=== PATIENT | female | born 1990 | race Caucasian/White ===

== ENCOUNTER 2025-06-10 16:20 | Emergency (ER) | payer MEDICAID ==
[~2025-06-10] VITALS: Ht 162.6 cm; Wt 68.2 kg
[2025-06-10 16:26] VITALS: O2SAT 100
[2025-06-10] MEDS: ONDANSETRON HCL 4MG/2ML INJ IV ONE (17:35)
[2025-06-10] MEDS: SODIUM CHLORIDE 0.9% 1,000 ML IV ONE (17:35)
[2025-06-10 17:45] LABS: CREATININE 0.6 mg/dL (0.6-1.0); UREA NITROGEN BLOOD 9 mg/dL (9-23)
[2025-06-10 17:47] LABS: ASPARTATE AMINOTRANSFERASE 11 IU/L (<34); BILIRUBIN DIRECT 0.1 mg/dL (<=3.0); BILIRUBIN TOTAL 0.4 mg/dL (0.1-1.0); PROTEIN TOTAL 6.7 g/dL (6.0-8.3)
[2025-06-10 17:48] LABS: BASOPHILS % 0.4 % (0.0-2.0); EOSINOPHILS % 0.4 % (0.0-5.0); HEMATOCRIT. 37.1 % (36.0-48.0); HEMOGLOBIN. 12.6 g/dL (12.0-16.0); LYMPHOCYTES % 22.3 % (20.0-50.0); MEAN PLATELET VOLUME 9.7 fl (7.4-10.4); MONOCYTES % 4.8 % (2.0-8.0); NEUTROPHILS % 72.1 % (40.0-76.0); PLATELET 200 x1000/uL (130-400); RED BLOOD CELL COUNT 4.17 mill/uL (4.2-5.4); RED CELL DISTRIBUTION WIDTH 13.9 % (11.6-14.6)
[2025-06-10 17:50] LABS: HCG SCREEN POSITIVE
[2025-06-10 18:06] LABS: B-HCG QUANTITATIVE 148012 mIU/mL (<6)
[2025-06-10] MEDS: POTASSIUM CHLORIDE 20MEQ TABLET SR PO STA (19:21)
[2025-06-10 19:35] LABS: CLARITY URINE CLEAR (CLEAR); COLOR URINE YELLOW (YELLOW); GLUCOSE URINE NEGATIVE (NEGATIVE); KETONES URINE 3+ (NEGATIVE); LEUKOCYTE ESTERASE URINE NEGATIVE (NEGATIVE); NITRITE URINE NEGATIVE (NEGATIVE); OCCULT BLOOD URINE TRACE (NEGATIVE); PH URINE 5.5 (4.5-8.0); PROTEIN URINE NEGATIVE (NEGATIVE); SPECIFIC GRAVITY URINE 1.026 (1.005-1.030); UROBILINOGEN URINE 0.2 E.U./dL (0.2-1.0)
[2025-06-10 20:30] VITALS: BP 94/43; PULSE 66; RESP 16; TEMP 36.9; O2SAT 100
[2025-06-10 20:33] LABS: BACTERIA URINE NONE SEEN; RBC URINE NONE SEEN /hpf (0-2); SQUAMOUS EPITHELIAL CELL URINE RARE /lpf (RARE/1+); WBC URINE NONE SEEN /hpf (0-2)
== END 2025-06-10 20:40 | disposition home or self-care (01) ==
LOC: ER 16:20
DX: O26.891 Other specified pregnancy related conditions, first trimester (principal); R11.2 Nausea with vomiting, unspecified; R10.2 Pelvic and perineal pain; Z3A.01 Less than 8 weeks gestation of pregnancy
CPT/HCPCS: 99285; 96360; 76801; 96361; 80076; 80048; 81003; 84703; 84702; 83690; 83735; 85025; 86850; 86900; 86901; 36415; 76817; J7030

== ENCOUNTER 2025-06-24 11:31 | Emergency (ER) | payer MEDICAID ==
[~2025-06-24] VITALS: Ht 162.6 cm; Wt 69.0 kg
[2025-06-24 11:43] VITALS: O2SAT 100
[2025-06-24 12:36] LABS: BASOPHILS % 0.1 % (0.0-2.0); EOSINOPHILS % 0.2 % (0.0-5.0); HEMATOCRIT. 39.8 % (36.0-48.0); HEMOGLOBIN. 13.6 g/dL (12.0-16.0); LYMPHOCYTES % 9.3 % (20.0-50.0); MEAN PLATELET VOLUME 8.9 fl (7.4-10.4); MONOCYTES % 6.6 % (2.0-8.0); NEUTROPHILS % 83.8 % (40.0-76.0); PLATELET 195 x1000/uL (130-400); RED BLOOD CELL COUNT 4.47 mill/uL (4.2-5.4); RED CELL DISTRIBUTION WIDTH 13.9 % (11.6-14.6)
[2025-06-24 12:46] LABS: CREATININE 0.6 mg/dL (0.6-1.0); UREA NITROGEN BLOOD 7 mg/dL (9-23)
[2025-06-24 12:48] LABS: ASPARTATE AMINOTRANSFERASE 12 IU/L (<34)
[2025-06-24 12:49] LABS: BILIRUBIN DIRECT 0.2 mg/dL (<=3.0); BILIRUBIN TOTAL 0.7 mg/dL (0.1-1.0); PROTEIN TOTAL 7.3 g/dL (6.0-8.3)
[2025-06-24 13:05] LABS: B-HCG QUANTITATIVE 192599 mIU/mL (<6)
[2025-06-24] MEDS: ONDANSETRON HCL 4MG/2ML INJ IV ONE (13:44)
[2025-06-24] MEDS: SODIUM CHLORIDE 0.9% 1,000 ML IV ONE (13:44)
[2025-06-24 14:01] LABS: CLARITY URINE CLEAR (CLEAR); COLOR URINE DARK YELLOW (YELLOW); GLUCOSE URINE NEGATIVE (NEGATIVE); KETONES URINE 1+ (NEGATIVE); LEUKOCYTE ESTERASE URINE NEGATIVE (NEGATIVE); NITRITE URINE NEGATIVE (NEGATIVE); OCCULT BLOOD URINE 1+ (NEGATIVE); PH URINE 6.0 (4.5-8.0); PROTEIN URINE TRACE (NEGATIVE); SPECIFIC GRAVITY URINE 1.027 (1.005-1.030); UROBILINOGEN URINE 0.2 E.U./dL (0.2-1.0)
[2025-06-24 14:21] LABS: MUCUS URINE TRACE /lpf (< = 2+); RBC URINE 0-2 /hpf (0-2); SQUAMOUS EPITHELIAL CELL URINE FEW /lpf (RARE/1+)
[2025-06-24 14:22] LABS: BACTERIA URINE TRACE; WBC URINE 0-2 /hpf (0-2)
[2025-06-24] MEDS ORDERED: ONDA-239 PO (15:54)
[2025-06-24 16:24] VITALS: BP 101/64; PULSE 98; RESP 16; TEMP 36.7; O2SAT 100
== END 2025-06-24 16:26 | disposition home or self-care (01) ==
LOC: ER 11:31
DX: O21.1 Hyperemesis gravidarum with metabolic disturbance (principal); O99.511 Diseases of the respiratory system complicating pregnancy, first trimester; R10.2 Pelvic and perineal pain; Z90.49 Acquired absence of other specified parts of digestive tract; Z3A.09 9 weeks gestation of pregnancy; Z20.822 Contact with and (suspected) exposure to COVID-19
CPT/HCPCS: 99285; 96374; 76801; 96361; 87426; 80076; 80048; 81003; 84702; 83735; 85025; 86850; 86900; 86901; 36415; 76817; J2405; J7030